=== PATIENT | male | born 2000 | race Caucasian/White ===

== ENCOUNTER 2023-11-16 19:41 | Emergency (ER) | payer OTHER, SELFPAY ==
[2023-11-16 19:42] VITALS: BP 133/84; PULSE 100; RESP 18; TEMP 36.4; O2SAT 98; BMI 18.5
--- NOTE | 2023-11-16 19:51 | EDS_ITS ---
HPI <ASHLEY Mccoy - Last Filed: 11/16/23 21:32> History of Present Illness Chief Complaint: Upper Extremity Injury Narrative Narrative: Patient presenting today due to an injury to his right hand that occurred this evening. He reports that he was giving a presentation at school in front of a lot of people when the technology malfunctioned, causing him to become upset. After it was over he punched a locker several times with his right hand and is now concerned it could be fractured. He is right-handed and denies any other injury. PFSH <ASHLEY Mccoy - Last Filed: 11/16/23 21:32> PFSH Allergy/AdvReac Type Severity Reaction Status Date / Time No Known Allergies Allergy Verified 11/16/23 19:44 Social History Smoking Status: Never smoker ROS <ASHLEY Mccoy - Last Filed: 11/16/23 21:32> ROS ED Constitutional Constitutional ED: Denies chills or fever(s) Cardiovascular Cardiovascular: Denies chest pain Respiratory/Chest Respiratory/Chest: Denies cough or dyspnea Gastrointestinal Gastrointestinal: Denies abdominal pain, nausea or vomiting Musculoskeletal Musculoskeletal: Reports arthralgias Integumentary Denies Abrasions Neurologic Neurologic: Denies paresthesias EXAM <ASHLEY Mccoy - Last Filed: 11/16/23 21:32> Physical Exam Const Vital Signs: 11/16/23 19:42 Temperature 97.6 F L Temperature Source Temporal Pulse Rate 100 Respiratory Rate 18 Blood Pressure 133/84 H Blood Pressure Mean 100 Pulse Ox 98 Oxygen Delivery Method Room Air Positive well nourished, well developed and no apparent distress General Appearance ED: well developed HEENT Reports normocephalic and head/scalp atraumatic Mouth ED: Yes moist mucous membranes normal Eyes PERRL and EOMs intact bilaterally Neck full ROM and supple Chest Wall inspection of chest normal Resp normal respiratory effort and clear to auscultation bilaterally Cardio regular rate and regular rhythm GI soft to palpation, non-tender, non-distended and no masses Back/Spine normal ROM and normal to inspection Extremity Extremity Narrative: Swelling to the right third through fifth MCP joints, limited flexion at the MCP joints due to pain and swelling. Right radial pulse 2+, good capillary refill, sensation intact. Neuro oriented x3, CN's II-XII intact bilaterally, moves all extremities, no focal motor deficits and no sensory deficits noted Sensorium / Orientation: awake and alert Psych mental status grossly normal and thought process normal Skin no rashes or lesions noted and no wounds [facility] <ASHLEY Mccoy - Last Filed: 11/16/23 21:32> [facility] Narrative Medical decision making narrative: Patient presenting due to an injury to his right hand. He has swelling and pain to the right third through fifth MCP joints. X-ray will be obtained to rule out fracture. He was given ibuprofen for pain. X-ray suspicious for nondisplaced fractures of the fourth and fifth metacarpal bones. Patient was placed in a ulnar gutter splint. RICE instructions discussed. He has been given an orthopedic referral, he can alternate Tylenol and ibuprofen for pain as needed. He will be discharged home in stable condition and is comfortable with plan. This patient was seen with a PA/DIRECTOR OF [employer]NER[employer] Individually assessed they patient including history and physical. I have reviewed everything on the chart that is available and agree with the documentation provided by the PA/[employer] OF [employer] including discussion about the assessment, treatment plan, discussion, and return precautions. Patient presenting with hand pain after punching lockers. On examination does have some bruising and swelling. X-rays of the right hand patient of 3 views of the right hand appear to be nondisplaced fracture of the fourth and fifth metacarpals. Patient will put in a ulnar gutter splint. Follow-up with orthopedics. Tylenol, ibuprofen, rest. <Dr. Jermaine Amaya DO - Last Filed: 11/16/23 22:07> [facility] Narrative Medical decision making narrative: Patient presenting due to an injury to his right hand. He has swelling and pain to the right third through fifth MCP joints. X-ray will be obtained to rule out fracture. He was given ibuprofen for pain. This patient was seen with a PA/[employer] Individually assessed they patient including history and physical. I have reviewed everything on the chart that is available and agree with the documentation provided by the PA/[employer] including discussion about the assessment, treatment plan, discussion, and return precautions. Patient presenting with hand pain after punching lockers. On examination does have some bruising and swelling. X-rays of the right hand patient of 3 views of the right hand appear to be nondisplaced fracture of the fourth and fifth metacarpals. Patient will put in a ulnar gutter splint. Follow-up with orthopedics. Tylenol, ibuprofen, rest. Procedures <ASHLEY Mccoy - Last Filed: 11/16/23 21:32> Upper Extremity Splints Upper Extremity Splint: Orthoglass and Ulnar gutter Location: Right Discharge Plan Triage Chief Complaint: Upper Extremity Injury ED Midlevel Provider: Evita Simons ED Provider: Jermaine Amaya Dx/Rx/DC Orders Clinical Impression: Hand fracture, right Instructions: ED Fracture, Upper Extremity Primary Care Provider: Gayathri Gaming Referrals: Satish Culver DO [Med Staff - Active Staff] - 1 Week NOT,DEFINED [Non-Staff] - Activity Restrictions/Additional Instructions: Follow-up with orthopedics in the next week. Keep your hand elevated, ice several times a day for the next few days. You can alternate Tylenol and ibuprofen for pain as needed. Disposition Disposition: Home, Self Care Discharge Date/Time: 11/16/23 21:37
[2023-11-16] MEDS: Ibuprofen 600 MG Tablet PO (19:55)
--- NOTE | 2023-11-16 20:00 | RAD_ITS ---
STUDY: X-RAY - RIGHT HAND REASON FOR EXAM: Male, 23 years old. INJURY TECHNIQUE: 3 view(s) of the hand. COMPARISON: None. FINDINGS: Normal radiocarpal articulation. Normal distal radioulnar joint. Normal visualized carpal bones. Normal carpal articulations Normal carpometacarpal articulation of the thumb. Normal second through fifth carpometacarpal joints. There are radiolucencies within the base of the fourth and fifth metacarpal bones which may represent nondisplaced fractures. Correlation with CT or MRI may be useful. Normal metacarpophalangeal joint of the thumb. Normal interphalangeal joint of the thumb. Normal proximal and distal phalanges of the thumb. Normal metacarpophalangeal joints of the second through fifth fingers. Normal proximal and distal interphalangeal joints of the second through fifth fingers. Normal phalanges of the second through fifth fingers. The soft tissue structures are unremarkable. RAD/Hand Min 3 Views IMPRESSION: Suspect subtle nondisplaced fractures of the base of the fourth and fifth metacarpal bones and correlation with CT or MRI may be useful. Electronically Signed: Dae Meadows MD at 21:04 EDT ,
[2023-11-16 21:35] VITALS: BP 126/70; PULSE 84; RESP 16; TEMP 36.6; O2SAT 100
== END 2023-11-16 21:37 | disposition home or self-care (01) ==
PROVIDERS: Emergency Provider Student in an Organized Health Care Education/Training Program; Visit Provider Student in an Organized Health Care Education/Training Program
DX: S62.344A Nondisplaced fracture of base of fourth metacarpal bone, right hand, initial encounter for closed fracture (principal); S62.346A Nondisplaced fracture of base of fifth metacarpal bone, right hand, initial encounter for closed fracture; W22.09XA Striking against other stationary object, initial encounter
CPT/HCPCS: 73130; 99282